=== PATIENT | male | born 1965 | race Caucasian/White ===

== ENCOUNTER 2020-08-04 02:20 | Inpatient (IN) | payer MEDICAID ==
[~2020-08-04] VITALS: Ht 177.8 cm; Wt 108.0 kg
[2020-08-04] MEDS ORDERED: AZITHROMYCIN 500 MG in DEXT 5% WATER 250 ML IV ONE (03:15)
[2020-08-04] MEDS ORDERED: CEFTRIAXONE 1 G PREMIX 50 ML IV ONE (03:15)
[2020-08-04] MEDS ORDERED: SODIUM CHLORIDE 0.9% 1000ML BAG (SEPSIS BOLUS) IV ONE (03:15)
[2020-08-04 03:43] LABS: BG BASE EXCESS -2.9 mmol/L (-2.0-2.0); BG CARBOXYHEMOGLOBIN 1.8 % (0.5-1.5); BG DEOXYHEMOGLOBIN 4.6 % (0.0-5.0); BG FRACTION INSPIRED OXYGEN 21; BG HCO3 ACT 21.3 mmol/L (22.0-26.0); BG METHEMOGLOBIN 0.2 % (0.0-1.5); BG OXYGEN SATURATION 95.3 % (92.0-98.5); BG OXYHEMOGLOBIN 93.4 % (94.0-97.0); BG PCO2 35.9 mmHg (35.0-45.0); BG PH 7.391 (7.350-7.450); BG PO2 75.7 mmHg (75.0-100.0); BG SAMPLE SITE RIGHT RADIAL; BG TOTAL HEMOGLOBIN 15.8 g/dL (12.0-18.0); BG VENT MODE ROOM AIR
[2020-08-04 04:29] LABS: BASOPHILS % 1.2 % (0.0-2.0); CHLORIDE 109 mEq/L (98-107); EOSINOPHILS % 3.4 % (0.0-5.0); HEMOGLOBIN. 15.1 g/dL (14.0-18.0); LYMPHOCYTES % 34.5 % (20.0-50.0); MEAN CORPUSCULAR HEMOGLOBIN 29.2 pg (28.0-32.0); MEAN PLATELET VOLUME 9.2 fl (7.4-10.4); MONOCYTES % 6.6 % (2.0-8.0); NEUTROPHILS % 54.3 % (40.0-76.0); PLATELET 234 x1000/uL (130-400); RED BLOOD CELL COUNT 5.17 mill/uL (4.7-6.1); RED CELL DISTRIBUTION WIDTH 14.3 % (11.6-14.6)
[2020-08-04 04:39] LABS: D-DIMER 0.22 mg/L FEU (<0.50); PROTHROMBIN TIME 10.6 sec (9.6-11.0)
[2020-08-04] MEDS ORDERED: IOHEXOL-350 100 ML BOTTLE ONE (06:01)
[2020-08-04 16:55] VITALS: BP 121/87
[2020-08-04] MEDS ORDERED: QUET400T MT (17:44)
[2020-08-04] MEDS ORDERED: BUSP10TA4 MT (17:44)
[2020-08-04] MEDS ORDERED: QUET300T2 MT (17:44)
[2020-08-04 18:00] VITALS: BP 122/80
[2020-08-04 20:00] VITALS: BP 126/69
[2020-08-04 22:00] VITALS: BP 118/80
[2020-08-04] MEDS ORDERED: ONDANSETRON HCL 4MG/2ML INJ IV PRN (22:00)
[2020-08-04] MEDS ORDERED: LORAZEPAM 2MG/ML CPJ IV PRN (22:00)
[2020-08-04] MEDS ORDERED: ACETAMINOPHEN 325MG TABLET PO PRN (22:00)
[2020-08-04] MEDS ORDERED: QUETIAPINE FUMARATE 50MG TABLET PO SCH (23:30)
[2020-08-05] VITALS (8 sets, daily range): BP systolic 101–124; BP diastolic 67–90
[2020-08-05] MEDS: BUSPIRONE HCL 5MG TABLET PO SCH ×3 (00:22→17:56)
[2020-08-05] MEDS: SODIUM CHLORIDE 0.9% 1,000 ML IV SCH ×3 (00:22→08:10)
[2020-08-05 07:10] LABS: BASOPHILS % 0.7 % (0.0-2.0); HEMATOCRIT. 43.3 % (42.0-52.0); HEMOGLOBIN. 14.2 g/dL (14.0-18.0); LYMPHOCYTES % 50.4 % (20.0-50.0); MEAN CORPUSCULAR HEMOGLOBIN 29.2 pg (28.0-32.0); MEAN CORPUSCULAR VOLUME 88.9 fL (80.0-94.0); MONOCYTES % 7.4 % (2.0-8.0); NEUTROPHILS % 36.5 % (40.0-76.0); PLATELET 235 x1000/uL (130-400); RED BLOOD CELL COUNT 4.88 mill/uL (4.7-6.1); RED CELL DISTRIBUTION WIDTH 14.7 % (11.6-14.6)
[2020-08-05 07:12] LABS: CHLORIDE 110 mEq/L (98-107)
[2020-08-05 07:36] LABS: CREATINE KINASE 125 IU/L (39-308)
[2020-08-05 07:37] LABS: CREATINE KINASE MB FRACTION 1.6 ng/mL (0.5-3.6)
[2020-08-05] MEDS ORDERED: QUETIAPINE FUMARATE 50MG TABLET PO SCH (09:00)
[2020-08-05] MEDS ORDERED: HYDROCODONE/ACETAMINOPHEN 5/325MG TABLET PO PRN (14:30)
== END 2020-08-05 19:09 | disposition home or self-care (01) | DRG 207 ==
LOC: ER 02:20 → 5EST 05:24 → ENRESERV 16:01
PROVIDERS: ADMIT Internal Medicine; ATTEND Internal Medicine
DX: I95.9 Hypotension, unspecified (principal); B18.2 Chronic viral hepatitis C; M54.5 Low back pain; F17.200 Nicotine dependence, unspecified, uncomplicated; G89.29 Other chronic pain; F41.0 Panic disorder [episodic paroxysmal anxiety]; R06.4 Hyperventilation; F10.20 Alcohol dependence, uncomplicated; Y90.9 Presence of alcohol in blood, level not specified
CPT/HCPCS: 36415; 36600; 71045; 71275; 72100; 80048; 80053; 82375; 82550; 82553; 82805; 83605; 83880; 84145; 84484; 85025; 85379; 93005; 93306; 93970; 99291; J0456; J0696; J7030; J7060; Q9967